=== PATIENT | female | born 1945 | race Caucasian/White ===

== ENCOUNTER → 2016-06-27 | Outpatient (CLI) | payer MEDICARE ==
--- NOTE | 2016-06-27 16:03 | REP ---
LEFT FOOT: There is widening of the metatarsals and at the first MP joint are spurs, sclerosis with severe hallux valgus. The sesamoids show some fibular displacement. The remaining osseous and joint structures are essentially unremarkable except for some spurring at the os calcis and a 3rd hammer toe.. IMPRESSION: Severe hallux valgus with bunion formation and degenerative changes as described above. The proximal phalanx of the great toe shows approximately 30 to 40% fibular displacement. Hammer toe. Unreviewed MTDD
== END ==
LOC: M ADAMS 14:10
PROVIDERS: ATTEND Nurse Practitioner Family
DX: M25.579 Pain in unspecified ankle and joints of unspecified foot (principal)

== ENCOUNTER → 2016-09-19 | Outpatient (REF) | payer MEDICARE | LOC: M LAB REF 22:46 | PROVIDERS: ATTEND Nurse Practitioner Family | DX: R19.7 Diarrhea, unspecified (principal); L02.214 Cutaneous abscess of groin ==

== ENCOUNTER 2017-11-02 11:18 | Emergency (ER) | payer OTHER, MEDICARE ==
[2017-11-02 12:22] LABS: INR 1.99
[2017-11-02 12:23] LABS: PARTIAL THROMBOPLASTIN TIME 37.1 SECONDS (25.4-37.6)
== END 2017-11-02 12:57 | disposition home or self-care (01) ==
LOC: M ED 11:18
DX: S00.03XA Contusion of scalp, initial encounter (principal); S80.00XA Contusion of unspecified knee, initial encounter; W19.XXXA Unspecified fall, initial encounter; Y92.9 Unspecified place or not applicable; Y93.9 Activity, unspecified; Y99.0 Civilian activity done for income or pay; I48.91 Unspecified atrial fibrillation; Z79.01 Long term (current) use of anticoagulants; Z79.899 Other long term (current) drug therapy
CPT/HCPCS: 70450

== ENCOUNTER 2017-11-27 15:01 | Emergency (ER) | payer OTHER, MEDICARE | END 2017-11-27 18:02 | disposition home or self-care (01) | LOC: M ED 15:01 | DX: S80.01XA Contusion of right knee, initial encounter (principal); S46.811A Strain of other muscles, fascia and tendons at shoulder and upper arm level, right arm, initial encounter; W01.0XXA Fall on same level from slipping, tripping and stumbling without subsequent striking against object, initial encounter; Y92.512 Supermarket, store or market as the place of occurrence of the external cause; I10 Essential (primary) hypertension; J45.909 Unspecified asthma, uncomplicated; I48.91 Unspecified atrial fibrillation; K21.9 Gastro-esophageal reflux disease without esophagitis; E11.9 Type 2 diabetes mellitus without complications; M54.9 Dorsalgia, unspecified; Z79.899 Other long term (current) drug therapy; Z79.01 Long term (current) use of anticoagulants; Z79.84 Long term (current) use of oral hypoglycemic drugs | CPT/HCPCS: 73060 ==

== ENCOUNTER → 2017-12-05 | Outpatient (CLI) | payer OTHER, MEDICARE | LOC: M RAD 16:40 | DX: R07.89 Other chest pain (principal); R10.12 Left upper quadrant pain; R10.11 Right upper quadrant pain | CPT/HCPCS: 71111 ==

== ENCOUNTER → 2020-05-27 | Outpatient (REF) | payer MEDICARE ==
[~2020-05-27] MED LIST: COUM2.5T17 PO; FURO40TA2; GLIM1TAB4; JANU100T; LISI10TA22; METF-838; METO1TAB33; OMEP1CAP73; WARF-18
[2020-05-27 13:09] LABS: ALBUMIN 3.8 GM/DL (3.2-5.2); BILIRUBIN,TOTAL 0.6 MG/DL (0.2-1.0); CALCIUM LEVEL 9.4 MG/DL (8.8-10.2); CREATININE FOR GFR 1.07 MG/DL (0.55-1.30); GLOMERULAR FILTRATION RATE 53.5 (>39); POTASSIUM SERUM 4.5 MEQ/L (3.5-5.1); TOTAL PROTEIN 6.7 GM/DL (6.4-8.2)
== END ==
LOC: M LAB REF 12:05
PROVIDERS: ATTEND Internal Medicine
DX: E11.42 Type 2 diabetes mellitus with diabetic polyneuropathy (principal)

== ENCOUNTER → 2020-08-12 | Outpatient (CLI) | payer MEDICARE ==
[~2020-08-12] MED LIST changes: +PRAV20TA2
== END ==
LOC: M LABSMTC 10:55
PROVIDERS: ATTEND Anesthesiology
DX: Z01.812 Encounter for preprocedural laboratory examination (principal); Z20.828 Contact with and (suspected) exposure to other viral communicable diseases

== ENCOUNTER 2020-08-17 06:25 | Day surgery (SDC) | payer MEDICARE ==
[~2020-08-17] VITALS: Ht 157.5 cm; Wt 81.6 kg
[2020-08-17] MEDS ORDERED: propofoL 200 MG/20 ML VIAL As Ordered ONE (06:59)
[2020-08-17] MEDS ORDERED: LIDOCAINE 2% 100MG/5ML SDV (FOR ANES.) As Ordered ONE (06:59)
[2020-08-17] MEDS ORDERED: NS 1,000 ML IV ONE (07:00)
--- NOTE | 2020-08-17 07:51 | ROOR ---
Patient Name: Brittany Steele Procedure Date: 08/17/2020 7:26 AM Date of : 1945 Age: 75 Room: [facility] Gender: Female Note Status: Finalized Procedure: Total Colonoscopy to Cecum + Biopsy Polypectomy Indications: Colon cancer screening in patient at increased risk: Colorectal cancer in father, Incidental - Clinically significant diarrhea of unexplained origin Providers: Riki Modi MD Referring MD: HAWA LEMUS JR, MD Requesting Provider: Medicines: Monitored Anesthesia Care Complications: No immediate complications. Procedure: Pre-Anesthesia Assessment: - The heart rate, respiratory rate, oxygen saturations, blood pressure, adequacy of pulmonary ventilation, and response to care were monitored throughout the procedure. The Colonoscope was introduced through the anus and advanced to the cecum, identified by appendiceal orifice and ileocecal valve. The colonoscopy was performed without difficulty. The patient tolerated the procedure well. The quality of the bowel preparation was excellent. Findings: The perianal and digital rectal examinations were normal. Non-bleeding internal hemorrhoids were found during retroflexion. The hemorrhoids were small and Grade I (internal hemorrhoids that do not prolapse). Multiple small and large-mouthed diverticula were found in the recto-sigmoid colon, sigmoid colon and descending colon. Two flat polyps were found in the cecum. The polyps were diminutive in size. These polyps were removed with a cold biopsy forceps. Resection and retrieval were complete. Biopsies for histology were taken with a cold forceps from the ascending colon, transverse colon, descending colon and rectosigmoid colon for evaluation of microscopic colitis. The exam was otherwise without abnormality on direct and retroflexion views. Impression: - Non-bleeding internal hemorrhoids. - Diverticulosis in the recto-sigmoid colon, in the sigmoid colon and in the descending colon. - Two diminutive polyps in the cecum, removed with a cold biopsy forceps. Resected and retrieved. - The examination was otherwise normal on direct and retroflexion views. - Biopsies were taken with a cold forceps from the ascending colon, transverse colon, descending colon and rectosigmoid colon for evaluation of microscopic colitis. - The exam was otherwise normal to the cecum. Recommendation: - Patient has a contact number available for emergencies. The signs and symptoms of potential delayed complications were discussed with the patient. Return to normal activities tomorrow. Written discharge instructions were provided to the patient. - High fiber diet. - Discharge patient to home. - Continue present medications. - Await pathology results. - Repeat colonoscopy is not recommended due to current age (66 years or older) for screening purposes. - Return to referring physician. - Telephone GI clinic for pathology results in 1 week. - The findings and recommendations were discussed with the patient. Procedure Code(s): --- Professional --- 33022, Colonoscopy, flexible; with biopsy, single or multiple Diagnosis Code(s): --- Professional --- Z80.0, Family history of malignant neoplasm of digestive organs K64.0, First degree hemorrhoids K63.5, Polyp of colon K57.30, Diverticulosis of large intestine without perforation or abscess without bleeding CPT copyright 2019 [employer]. All rights reserved. The codes documented in this report are preliminary and upon director of music therapy review may be revised to meet current compliance requirements. Riki Modi MD Riki Modi MD 08/17/2020 7:50:44 AM Electronically signed by Riki Modi MD Number of Addenda: 0 Note Initiated On: 08/17/2020 7:26 AM Estimated Blood Loss: Estimated blood loss: none.
[2020-08-17 08:15] VITALS: BP 117/65
== END 2020-08-17 08:35 | disposition home or self-care (01) ==
LOC: M OPP 06:25
PROVIDERS: ATTEND Internal Medicine Gastroenterology
DX: D12.6 Benign neoplasm of colon, unspecified (principal); K57.30 Diverticulosis of large intestine without perforation or abscess without bleeding; K64.0 First degree hemorrhoids; R19.7 Diarrhea, unspecified; Z80.0 Family history of malignant neoplasm of digestive organs; E11.9 Type 2 diabetes mellitus without complications; Z79.01 Long term (current) use of anticoagulants; Z79.84 Long term (current) use of oral hypoglycemic drugs; Z79.899 Other long term (current) drug therapy

== ENCOUNTER → 2020-09-26 | Outpatient (REF) | payer MEDICARE | LOC: M LAB REF 12:07 | PROVIDERS: ATTEND Internal Medicine | DX: R30.0 Dysuria (principal) ==

== ENCOUNTER → 2021-01-23 | Outpatient (CLI) | payer MEDICARE ==
--- NOTE | 2021-01-23 15:44 | DEXAMM ---
INDICATION: AGE RELATED OSTEOPOROSIS W/O CURRENT PATHOLOGICIAL FX. COMPARISON: Comparison study September 05, 2016. TECHNIQUE: Bone density was measured using dual-energy x-ray absorptionmetry (DEXA). FINDINGS: AP SPINE L1-L4 BMD 1.294 g/cm2 Young Adult T-Score 0.8 Age Matched Z-Score 2.5. LT FEMUR, TOTAL BMD 0.882 g/cm2 Young Adult T-Score -1.0 Age Matched Z-Score 0.7. LT NECK BMD 0.782 g/cm2 Young Adult T-Score -1.8 Age Matched Z-Score 0.0. RT FEMUR, TOTAL BMD 0.857 g/cm2 Young Adult T-Score -1.2 Age Matched Z-Score 0.5. RT NECK BMD 0.762 g/cm2 Young Adult T-Score -2.0 Age Matched Z-Score -0.1. IMPRESSION: There is normal bone density of the spine. There is low bone density of the left hip. There is low bone density of the right hip. The density of the spine has decreased 3.3% since the initial exam on January 18, 2005. The density of the spine decreased 5.3% since most recent exam on September 05, 2016. The density of the left hip has decreased 21.3% since initial exam on January 18, 2005. The density of the left hip has increased 3.6% since most recent exam on September 05, 2016. The density of the right hip has decreased 24.1% since the initial exam on January 18, 2005. The density of the right hip has decreased 10.5% since the most recent exam on September 05, 2016. FOLLOW-UP: Recommendation for the next bone density exam: 2 years. <Electronically signed by Jasper Bran > 01/23/21 [id number]
== END ==
LOC: M WHC 13:15
PROVIDERS: ATTEND Internal Medicine
DX: M81.0 Age-related osteoporosis without current pathological fracture (principal); M85.851 Other specified disorders of bone density and structure, right thigh; M85.852 Other specified disorders of bone density and structure, left thigh

== ENCOUNTER → 2021-06-01 | Outpatient (REF) | payer MEDICARE | LOC: M LAB REF 12:02 | PROVIDERS: ATTEND Nurse Practitioner Adult Health | DX: N32.81 Overactive bladder (principal) ==

== ENCOUNTER 2022-01-10 13:43 | Emergency (ER) | payer MEDICARE ==
[~2022-01-10] VITALS: Ht 157.5 cm; Wt 78.6 kg
[2022-01-10] MEDS ORDERED: BOOSTRIX/ADACEL VACCINE (DIPHTH/PERTUSS/ACELL/TETANUS) 0.5ML SYR IM ONE (17:25)
[2022-01-10] MEDS ORDERED: LIDOCAINE W/EPINEPHRINE 1% 20ML VIAL SC ONE (17:25)
[2022-01-10 18:10] VITALS: BP 122/66
== END 2022-01-10 18:11 | disposition home or self-care (01) ==
LOC: M ED 13:43
DX: S09.90XA Unspecified injury of head, initial encounter (principal); S01.412A Laceration without foreign body of left cheek and temporomandibular area, initial encounter; W19.XXXA Unspecified fall, initial encounter; Y92.512 Supermarket, store or market as the place of occurrence of the external cause; I48.91 Unspecified atrial fibrillation; I10 Essential (primary) hypertension; E11.9 Type 2 diabetes mellitus without complications; J45.909 Unspecified asthma, uncomplicated; Z79.01 Long term (current) use of anticoagulants; Z79.84 Long term (current) use of oral hypoglycemic drugs; Z79.899 Other long term (current) drug therapy

== ENCOUNTER → 2022-01-17 | Outpatient (CLI) | payer MEDICARE ==
[2022-01-17 09:45] LABS: HEMATOCRIT 45.1 % (36.0-47.0); HEMOGLOBIN 14.6 g/dl (12.0-15.5); MEAN CORPUSCULAR HEMOGLOBIN 31.7 pg (27.0-33.0); MEAN CORPUSCULAR HGB CONC 32.4 g/dl (32.0-36.5); MEAN CORPUSCULAR VOLUME 97.8 fl (80.0-96.0); PLATELET COUNT, AUTOMATED 221 10^3/uL (150-450); RED BLOOD COUNT 4.61 10^6/uL (4.00-5.40)
[2022-01-17 10:14] LABS: ALBUMIN 3.8 GM/DL (3.2-5.2); BILIRUBIN,TOTAL 0.7 MG/DL (0.2-1.0); CALCIUM LEVEL 9.7 MG/DL (8.8-10.2); CREATININE FOR GFR 1.01 MG/DL (0.55-1.30); POTASSIUM SERUM 4.5 MEQ/L (3.5-5.1)
== END ==
LOC: M WUC 08:32
PROVIDERS: ATTEND Internal Medicine
DX: R06.02 Shortness of breath (principal)

== ENCOUNTER → 2022-06-19 | Outpatient (REF) | payer MEDICARE ==
[2022-06-19 16:28] LABS: APPEARANCE, URINE CLOUDY (CLEAR); BILIRUBIN, URINE AUTO NEGATIVE (NEGATIVE); BLOOD, URINE BLOOD 1+ (NEGATIVE); COLOR, URINE YELLOW (YELLOW); GLUCOSE, URINE (UA) AUTO 3+ mg/dL (NEGATIVE); KETONE, URINE AUTO NEGATIVE (NEGATIVE); LEUKOCYTE ESTERASE, URINE AUTO 3+ (NEGATIVE); NITRITE, URINE AUTO NEGATIVE (NEGATIVE); PROTEIN, URINE AUTO 1+ mg/dL (NEGATIVE); SPECIFIC GRAVITY URINE AUTO 1.032 (1.002-1.035); UROBILINOGEN, URINE AUTO 0.2 mg/dL (0.0-2.0)
[2022-06-19 16:57] LABS: BACTERIA, URINE AUTO 2+ (NEGATIVE); RBC, URINE AUTO 52 /HPF (0-3); SQUAMOUS EPITHELIAL CELL UR AU 2 /HPF (0-6); WBC, URINE AUTO TNTC /HPF (0-3)
== END ==
LOC: M LAB REF 16:03
PROVIDERS: ATTEND Internal Medicine
DX: N39.0 Urinary tract infection, site not specified (principal)

== ENCOUNTER → 2022-07-06 | Outpatient (REF) | payer MEDICARE | LOC: M LAB REF 16:27 | PROVIDERS: ATTEND Internal Medicine | DX: R30.0 Dysuria (principal); N39.0 Urinary tract infection, site not specified; R31.9 Hematuria, unspecified; R82.89 Other abnormal findings on cytological and histological examination of urine ==

== ENCOUNTER → 2022-07-13 | Outpatient (REF) | payer MEDICARE | LOC: M LAB REF 12:30 | PROVIDERS: ATTEND Internal Medicine | DX: N39.0 Urinary tract infection, site not specified (principal); R31.9 Hematuria, unspecified ==

== ENCOUNTER → 2022-07-20 | Outpatient (REF) | payer MEDICARE | LOC: M LAB REF 12:09 | PROVIDERS: ATTEND Internal Medicine | DX: R31.9 Hematuria, unspecified (principal) ==

== ENCOUNTER → 2022-07-25 | Outpatient (CLI) | payer MEDICARE | LOC: M RAD 09:16 | PROVIDERS: ATTEND Internal Medicine | DX: R10.2 Pelvic and perineal pain (principal) ==

== ENCOUNTER → 2022-09-26 | Outpatient (REF) | payer MEDICARE | LOC: M LAB REF 12:34 | PROVIDERS: ATTEND Nurse Practitioner Family | DX: N39.0 Urinary tract infection, site not specified (principal) ==

== ENCOUNTER → 2022-11-01 | Outpatient (REF) | payer MEDICARE | LOC: M LAB REF 12:07 | PROVIDERS: ATTEND Nurse Practitioner Adult Health | DX: N39.0 Urinary tract infection, site not specified (principal); R30.0 Dysuria; R31.9 Hematuria, unspecified ==

== ENCOUNTER → 2023-05-24 | Outpatient (REF) | payer MEDICARE | LOC: M LAB REF 16:34 | PROVIDERS: ATTEND Internal Medicine | DX: N39.0 Urinary tract infection, site not specified (principal) ==

== ENCOUNTER → 2023-08-16 | Outpatient (CLI) | payer MEDICARE | LOC: M WHC 13:28 | PROVIDERS: ATTEND Internal Medicine | DX: Z12.31 Encounter for screening mammogram for malignant neoplasm of breast (principal) ==

== ENCOUNTER → 2023-12-03 | Outpatient (CLI) | payer MEDICARE ==
[~2023-12-03] MED LIST changes: -GLIM1TAB4; +GLIM1TAB84
== END ==
LOC: M RAD 10:09
PROVIDERS: ATTEND Internal Medicine
DX: R10.9 Unspecified abdominal pain (principal); Z90.49 Acquired absence of other specified parts of digestive tract; K59.00 Constipation, unspecified; K57.90 Diverticulosis of intestine, part unspecified, without perforation or abscess without bleeding; K82.8 Other specified diseases of gallbladder; K86.89 Other specified diseases of pancreas

== ENCOUNTER → 2024-12-07 | Outpatient (REF) | payer MEDICARE, MEDICAID ==
[~2024-12-07] MED LIST changes: -PRAV20TA2; +PRAV20TA78
== END ==
LOC: M LAB REF 12:05
PROVIDERS: ATTEND Internal Medicine
DX: I50.32 Chronic diastolic (congestive) heart failure (principal)

== ENCOUNTER → 2025-04-02 | Outpatient (REF) | payer MEDICARE, MEDICAID | LOC: M LAB REF 16:52 | PROVIDERS: ATTEND Physician Assistant | DX: R30.0 Dysuria (principal) ==

== ENCOUNTER 2025-04-26 07:23 | Day surgery (SDC) | payer MEDICAID, MEDICARE ==
[~2025-04-26] VITALS: Ht 157.5 cm; Wt 73.8 kg
[~2025-04-26 07:23] MED LIST changes: +ELIQ5TAB PO; -FURO40TA2; +FURO40TA2 PO; -GLIM1TAB84; +GLIM1TAB84 PO; -JANU100T; +JANU100T PO; -LISI10TA22; +LISI10TA22 PO; +LR 1,000 ML IV SCH; -METF-838; +METF-838 PO; -METO1TAB33; +METO1TAB33 PO; -OMEP1CAP73; +OMEP1CAP73 PO; -PRAV20TA78; +PRAV20TA78 PO
[2025-04-26] MEDS: FLURBIPROFEN 0.03% OPHTH SOLN 2.5 ML OD SCH (08:29)
[2025-04-26] MEDS: CYCLOPENTOLATE 1% OPHTH SOLN 2 ML BTL OD SCH (08:29)
[2025-04-26] MEDS: PHENYLEPHRINE 2.5% OPHTH SOL 2ML OD SCH (08:29)
[2025-04-26] MEDS: TETRACAINE 0.5% OPHTH SOLN 4ML OD SCH (08:30)
[2025-04-26] MEDS ORDERED: GLUCAGON INJ 1 MG VIAL SC PRN (08:45)
[2025-04-26] MEDS ORDERED: GLUCOSE 4 GM CHEW PO PRN (08:45)
[2025-04-26] MEDS ORDERED: DEXTROSE 50% 50 ML SYRINGE IV PRN (08:45)
[2025-04-26] MEDS: INSULIN LISPRO (NovoLOG) PER UNIT SC PRN (09:13)
[2025-04-26] MEDS: LIDOCAINE 1% SDV 5 ML VIAL As Ordered ONE (09:40)
[2025-04-26] MEDS: CEFUROXIME 1 MG/0.1 ML INTRACAMERAL INJ As Ordered ONE (09:41)
[2025-04-26] MEDS ORDERED: ONDANSETRON 4MG/2ML VIAL As Ordered ONE (10:11)
[2025-04-26 10:25] VITALS: BP 143/62; TEMP 97; O2SAT 96
[2025-05-08] MEDS ORDERED: JARD1TAB3 PO (12:38)
[2025-05-08] MEDS ORDERED: PIOG1TAB36 PO (12:38)
== END 2025-04-26 10:35 | disposition home or self-care (01) ==
LOC: M SDC 07:23
PROVIDERS: ATTEND Ophthalmology
DX: E11.36 Type 2 diabetes mellitus with diabetic cataract (principal); H25.11 Age-related nuclear cataract, right eye; I48.91 Unspecified atrial fibrillation; I10 Essential (primary) hypertension; J45.909 Unspecified asthma, uncomplicated; Z79.899 Other long term (current) drug therapy; Z79.01 Long term (current) use of anticoagulants; Z79.84 Long term (current) use of oral hypoglycemic drugs; K21.9 Gastro-esophageal reflux disease without esophagitis
CPT/HCPCS: 66984; J0697; J1815; J2405; J3010; V2632

== ENCOUNTER 2025-05-03 06:56 | Day surgery (SDC) | payer MEDICAID, MEDICARE ==
[~2025-05-03] VITALS: Ht 165.1 cm; Wt 72.6 kg
[~2025-05-03 06:56] MED LIST changes: -LR 1,000 ML IV SCH; +MIDAZOLAM INJ 2 MG/2 ML VIAL As Ordered ONE
[2025-05-03] MEDS ORDERED: LR 1,000 ML IV SCH (07:00)
[2025-05-03] MEDS: PHENYLEPHRINE 2.5% OPHTH SOL 2ML OS SCH (07:26)
[2025-05-03] MEDS: FLURBIPROFEN 0.03% OPHTH SOLN 2.5 ML OS SCH (07:26)
[2025-05-03] MEDS: TETRACAINE 0.5% OPHTH SOLN 4ML OS SCH (07:26)
[2025-05-03] MEDS: CYCLOPENTOLATE 1% OPHTH SOLN 2 ML BTL OS SCH (07:26)
[2025-05-03] MEDS ORDERED: ONDANSETRON 4MG/2ML VIAL As Ordered ONE (08:21)
[2025-05-03] MEDS: LIDOCAINE 1% SDV 5 ML VIAL As Ordered ONE (09:03)
[2025-05-03] MEDS: CEFUROXIME 1 MG/0.1 ML INTRACAMERAL INJ As Ordered ONE (09:03)
[2025-05-03 09:20] VITALS: BP 110/53; TEMP 96.6; O2SAT 93
[2025-05-08] MEDS ORDERED: PIOG1TAB36 PO (12:38)
[2025-05-08] MEDS ORDERED: JARD1TAB3 PO (12:38)
== END 2025-05-03 09:38 | disposition home or self-care (01) ==
LOC: M SDC 06:56
PROVIDERS: ATTEND Ophthalmology
DX: E11.36 Type 2 diabetes mellitus with diabetic cataract (principal); H25.12 Age-related nuclear cataract, left eye; I13.0 Hypertensive heart and chronic kidney disease with heart failure and stage 1 through stage 4 chronic kidney disease, or unspecified chronic kidney disease; I48.20 Chronic atrial fibrillation, unspecified; I50.32 Chronic diastolic (congestive) heart failure; N18.32 Chronic kidney disease, stage 3b; J45.909 Unspecified asthma, uncomplicated; D68.69 Other thrombophilia; E78.00 Pure hypercholesterolemia, unspecified; K21.9 Gastro-esophageal reflux disease without esophagitis; Z79.899 Other long term (current) drug therapy; Z79.01 Long term (current) use of anticoagulants; Z79.84 Long term (current) use of oral hypoglycemic drugs
CPT/HCPCS: 66984; J0697; J2250; J2405; J3010; V2632